=== PATIENT | female | born 1985 | race Caucasian/White ===

== ENCOUNTER 2017-02-22 23:11 | Emergency (ER) | payer SELFPAY ==
[~2017-02-22] VITALS: Ht 170.2 cm; Wt 113.5 kg
[2017-02-22 23:15] VITALS: BP 121/77
--- NOTE | 2017-02-22 23:51 | NUR ---
Yesy aaron in [facility] - 02/23/17 at 0017 by MEDRJJ PATIENT LEFT WITHOUT BEING SEEN BY DR. RODRIGUEZ. NO FURTHER CARE PROVIDED FOR PATIENT.
--- NOTE | 2017-02-23 00:21 | NUR ---
PT TAKEN TO BED 3
--- NOTE | 2017-02-23 00:36 | NUR ---
31Y/F PT. PRESENT TO ED WITH C/O LEFT ARM AND HAND PAIN, S/P SPILLED HOT COFFEE OVER HER ARM AND HAND YESTERDAY NOON; SKIN IS PINK/WARM/DRY; AAOX4 WITH EVEN AND STEADY GAIT; LUNGS CLEAR BL; HR EVEN AND REGULAR; PT DENIES ANY FEVER, CP, SOB, OR COUGH AT THIS TIME; PATIENT STATES PAIN OF 10/10 AT THIS TIME; VSS; PATIENT POSITIONED FOR COMFORT; HOB ELEVATED; BEDRAILS UP X2; BED DOWN. ER MD MADE AWARE OF PT STATUS.
--- NOTE | 2017-02-23 00:38 | NUR ---
Dr. Boles evaluating patient at bedside.
[2017-02-23] MEDS ORDERED: SILVER SULFADIAZINE 1% 50 GM JAR TP ONE (00:48)
[2017-02-23] MEDS ORDERED: IBUPROFEN 800 MG TAB PO ONE (00:50)
--- NOTE | 2017-02-23 00:52 | NUR ---
APPLIED SILVADENE 1% TO LT. ARM AND HAND.
--- NOTE | 2017-02-23 01:15 | NUR ---
Patient discharged with v/s stable. Written and verbal after care instructions given and explained. Patient verbalized understanding. Ambulatory with steady gait. All questions addressed prior to discharge. Advised to follow up with PMD.
[2017-02-23 01:16] VITALS: BP 121/77
== END 2017-02-23 01:15 | disposition home or self-care (01) ==
LOC: MED 23:11
DX: T23.172A Burn of first degree of left wrist, initial encounter (principal); X10.0XXA Contact with hot drinks, initial encounter; Y93.89 Activity, other specified; Y92.89 Other specified places as the place of occurrence of the external cause; Y99.8 Other external cause status
CPT/HCPCS: 16020; 99284

== ENCOUNTER 2017-03-13 00:05 | Emergency (ER) | payer SELFPAY ==
[~2017-03-13] VITALS: Ht 170.2 cm; Wt 113.4 kg
[2017-03-13 00:11] VITALS: BP 145/81
--- NOTE | 2017-03-13 00:25 | NUR ---
TO ER OF2
[2017-03-13 01:00] VITALS: BP 128/78
--- NOTE | 2017-03-13 01:00 | NUR ---
Patient discharged with v/s stable. Written and verbal after care instructions given and explained. Patient alert, oriented and verbalized understanding of instructions. Ambulatory with steady gait. All questions addressed prior to discharge. ID band removed. Patient advised to follow up with PMD. Rx of HYDROCORTIISON 2.5 given. Patient educated on indication of medication including possible reaction and side effects. Opportunity to ask questions provided and answered.
== END 2017-03-13 01:01 | disposition home or self-care (01) ==
LOC: MED 00:05
DX: T22.00XA Burn of unspecified degree of shoulder and upper limb, except wrist and hand, unspecified site, initial encounter (principal); Z53.21 Procedure and treatment not carried out due to patient leaving prior to being seen by health care provider; X08.8XXA Exposure to other specified smoke, fire and flames, initial encounter; Y93.89 Activity, other specified; Y92.89 Other specified places as the place of occurrence of the external cause; Y99.8 Other external cause status

== ENCOUNTER 2022-01-17 01:20 | Emergency (ER) | payer BC ==
[~2022-01-17] VITALS: Ht 170.2 cm; Wt 99.8 kg
[2022-01-17 01:33] VITALS: BP 134/68
[2022-01-17 02:12] LABS: APPEARANCE,URINE CLEAR (CLEAR); BILIRUBIN,URINE NEGATIVE (NEGATIVE); BLOOD, URINE NEGATIVE (NEGATIVE); COLOR,URINE YELLOW (YELLOW); LEUKOCYTE ESTERASE ,URINE NEGATIVE (NEGATIVE); NITRITE, URINE NEGATIVE (NEGATIVE); UGLUCOSE NEGATIVE (NEGATIVE)
[2022-01-17] MEDS ORDERED: MAGN400S60 PO (02:18)
[2022-01-17] MEDS ORDERED: MAGNESIUM CITRATE 300 ML BTL PO ONE (02:20)
[2022-01-17 02:33] VITALS: BP 134/68
== END 2022-01-17 02:33 | disposition home or self-care (01) ==
LOC: MED 01:20
DX: K59.00 Constipation, unspecified (principal); Z90.49 Acquired absence of other specified parts of digestive tract; Z79.899 Other long term (current) drug therapy
CPT/HCPCS: 74018; 81003; 99284; Q0092

== ENCOUNTER 2023-11-03 18:53 | Emergency (ER) | payer BC, OTHER ==
[~2023-11-03] VITALS: Ht 170.2 cm; Wt 104.3 kg
[~2023-11-03 18:53] MED LIST: MAGN400S60 PO
[2023-11-03 18:59] VITALS: BP 117/65; PULSE 83; RESP 16; TEMP 98; O2SAT 99
[2023-11-03 19:31] VITALS: BP 108/75; PULSE 77; RESP 18; O2SAT 95
[2023-11-03] MEDS ORDERED: KETOROLAC 30 MG/ML VIAL IM ONE (19:40)
[2023-11-03] MEDS ORDERED: DEXAMETHASONE 10 MG/ML VIAL IM ONE (19:40)
[2023-11-03] MEDS ORDERED: FLONAS NS ×2 (19:46→22:35)
[2023-11-03] MEDS ORDERED: PROM118S5 PO ×2 (19:46→22:35)
[2023-11-03] MEDS ORDERED: AMOX1TAB8 PO ×2 (19:46→22:35)
[2023-11-03] MEDS ORDERED: FLUC100T PO ×2 (19:53→22:35)
[2023-11-03 20:17] LABS: FLU A ANTIGEN negative (NEGATIVE); FLU B ANTIGEN negative (NEGATIVE)
== END 2023-11-03 20:23 | disposition home or self-care (01) ==
LOC: MED 18:53
DX: J01.90 Acute sinusitis, unspecified (principal); Z20.822 Contact with and (suspected) exposure to COVID-19; K21.9 Gastro-esophageal reflux disease without esophagitis; I10 Essential (primary) hypertension; Z79.899 Other long term (current) drug therapy
CPT/HCPCS: 81025; 87426; 87804; 96372; 99284; J1100; J1885

== ENCOUNTER 2024-07-09 01:35 | Emergency (ER) | payer OTHER ==
[~2024-07-09] VITALS: Ht 170.2 cm; Wt 97.5 kg
[~2024-07-09 01:35] MED LIST changes: +AMOX1TAB8 PO; +FLONAS NS; +FLUC100T PO; +PROM118S5 PO
[2024-07-09 01:51] VITALS: BP 115/68; PULSE 82; RESP 18; TEMP 98.1; O2SAT 98
[2024-07-09 03:15] LABS: BASOPHILS # (AUTO) 0.1 K/uL (0.00-0.22); BASOPHILS % (AUTO) 0.7 % (0.0-2.0); EOSINOPHILS # (AUTO) 0.3 K/uL (0-0.4); EOSINOPHILS % (AUTO) 2.9 % (0.0-4.0); HEMATOCRIT 37.6 % (36-48); HEMOGLOBIN 12.4 g/dL (12.0-16.0); LYMPHOCYTES # (AUTO) 3.4 K/uL (2.5-16.5); LYMPHOCYTES % (AUTO) 35.5 % (20.5-51.1); MEAN CORPUSCULAR HEMOGLOBIN 26 pg (27-31); MEAN CORPUSCULAR HGB CONC 33 g/dL (33-37); MEAN CORPUSCULAR VOLUME 77.2 fL (80-94); MONOCYTES # (AUTO) 0.7 K/uL (0.8-1.0); MONOCYTES % (AUTO) 7.4 % (1.7-9.3); NEUTROPHILS # (AUTO) 5.2 K/uL (1.8-7.7); NEUTROPHILS % (AUTO) 53.5 % (42.2-75.2); PLATELET COUNT (AUTO) 252 K/uL (140-450); RED BLOOD CELL COUNT(AUTO) 4.87 MIL/uL (4.20-5.40); RED CELL DISTRIBUTION WIDTH 15.2 % (11.6-13.7); WHITE BLOOD COUNT (AUTO) 9.7 K/uL (4.8-10.8)
[2024-07-09 03:34] LABS: APPEARANCE,URINE CLEAR (CLEAR); BILIRUBIN,URINE NEGATIVE (NEGATIVE); BLOOD, URINE NEGATIVE (NEGATIVE); COLOR,URINE YELLOW (YELLOW); LEUKOCYTE ESTERASE ,URINE NEGATIVE (NEGATIVE); NITRITE, URINE NEGATIVE (NEGATIVE); PROTEIN,URINE NEGATIVE (NEGATIVE); UGLUCOSE NEGATIVE (NEGATIVE); UROBILINOGEN,URINE 0.2 EU/dL (0.2 - 1)
[2024-07-09 03:45] LABS: BILIRUBIN,DIRECT 0.1 mg/dL (0.0-0.3); TOTAL BILIRUBIN 0.1 mg/dL (0.0-1.0)
[2024-07-09 03:46] LABS: ALANINE AMINOTRANSFERASE 26 U/L (12-78); ALBUMIN 3.1 g/dL (3.4-5.0); ALKALINE PHOSPHATASE 92 U/L (50-136); ASPARTATE AMINOTRANSFERASE 12 U/L (15-37); POTASSIUM 3.6 mmol/L (3.5-5.1); TOTAL PROTEIN, SERUM 6.7 g/dL (6.4-8.2)
[2024-07-09 03:47] LABS: ANION GAP 11.1 (8-16); CALCIUM 8.3 mg/dL (8.5-10.1); CARBON DIOXIDE 27.5 mmol/L (21-32); CREATININE 0.9 mg/dL (0.6-1.3)
[2024-07-09 05:30] VITALS: BP 120/79; PULSE 79; RESP 17; TEMP 98; O2SAT 98
== END 2024-07-09 05:30 | disposition home or self-care (01) ==
LOC: MED 01:35
DX: R10.30 Lower abdominal pain, unspecified (principal); R07.9 Chest pain, unspecified; R00.2 Palpitations; K21.9 Gastro-esophageal reflux disease without esophagitis; I10 Essential (primary) hypertension; Z90.49 Acquired absence of other specified parts of digestive tract; Z79.899 Other long term (current) drug therapy
CPT/HCPCS: 36415; 80048; 80076; 81003; 84484; 85025; 93005; 99284